=== PATIENT | male | born 1980 | race Caucasian/White ===

== ENCOUNTER 2017-07-22 16:48 | Emergency (ER) | payer OTHER ==
[2017-07-22 16:53] VITALS: PULSE 105; RESP 18; TEMP 98.9
--- NOTE | 2017-07-22 17:05 | ED ---
ENT HPI - General Chief complaint: ENT Stated complaint: ENT Time Seen by Provider: 07/22/17 16:58 Source: patient, RN notes reviewed Mode of arrival: ambulatory Limitations: no limitations - History of Present Illness Initial comments: This a 36-year-old male presents emergency Department chief complaint of bilateral ear pain, pressure. Patient states that he started with influenza- type symptoms 3 weeks ago but states that he continues with sinus congestion pressure. Patient states that he tried some [id number] Sudafed, Afrin no relief of his symptoms. Patient states that started flush years several times. Patient reports no fever no chills. Denies chest pain, shortness breath, headache or dizziness. - Related Data Previous Rx's Medication Instructions Recorded Cephalexin [Keflex] 500 mg PO Q6HR #28 cap 04/16/16 Amoxicillin 875 mg PO Q12HR #20 tablet 07/22/17 predniSONE 50 mg PO DAILY #5 tab 07/22/17 Allergies Allergy/AdvReac Type Severity Reaction Status Date / Time sulfamethoxazole Allergy Rash/Hives Verified 07/22/17 16:52 [From Bactrim] trimethoprim [From Bactrim] Allergy Rash/Hives Verified 07/22/17 16:52 Review of Systems ROS Statement: Those systems with pertinent positive or pertinent negative responses have been documented in the HPI. ROS Other: All systems not noted in ROS Statement are negative. Past Medical History Past Medical History: No Reported History History of Any Multi-Drug Resistant Organisms: MRSA Date of last positivie culture/infection: unknown Past Surgical History: Orthopedic Surgery Past Psychological History: Anxiety Smoking Status: Current every day smoker Past Alcohol Use History: Daily Past Drug Use History: Marijuana General Exam Limitations: no limitations General appearance: alert, in no apparent distress, anxious Head exam: Present: atraumatic, normocephalic, normal inspection Eye exam: Present: normal appearance, PERRL, EOMI. Absent: scleral icterus, conjunctival injection, periorbital swelling ENT exam: Present: normal oropharynx, mucous membranes moist, normal external ear exam. Absent: TM's normal bilaterally (Fluid, air fluid levels noted in the right, mild erythema noted to the left) Neck exam: Present: normal inspection, full ROM. Absent: tenderness, meningismus, lymphadenopathy Respiratory exam: Present: normal lung sounds bilaterally. Absent: respiratory distress, wheezes, rales, rhonchi, stridor Cardiovascular Exam: Present: regular rate, normal rhythm, normal heart sounds. Absent: systolic murmur, diastolic murmur, rubs, gallop, clicks Course Vital Signs 07/22/17 16:49 Temperature 98.9 F Pulse Rate 105 H Respiratory 18 Rate Blood Pressure 188/98 O2 Sat by Pulse 99 Oximetry Medical Decision Making - Medical Decision Making 36-year-old male present emergency department to complaint of bilateral ear pain , pressure. Patient has a stationary dysfunction, mild infections the left TM. Patient placed on antibiotics. He has tried some [id number]-[id number] decongestants, nasal sprays. He had the advised to continue Flonase, patient was given steroids secondary to failed conservative treatment. Disposition Clinical Impression: Eustachian tube dysfunction, Otitis media Disposition: HOME SELF-CARE Condition: Stable Instructions: Earache (ED) Additional Instructions: Please return to the Emergency Department if symptoms worsen or any other concerns. Use [id number] Flonase. Prescriptions: Amoxicillin 875 mg PO Q12HR #20 tablet predniSONE 50 mg PO DAILY #5 tab Referrals: None,Stated [Primary Care Provider] - 1-2 days Time of Disposition: 17:04
[2017-07-22 17:16] VITALS: BP 185/80
== END 2017-07-22 17:15 | disposition home or self-care (01) ==
LOC: EC 16:48
DX: H69.93 Unspecified Eustachian tube disorder, bilateral (principal); H66.92 Otitis media, unspecified, left ear; F17.200 Nicotine dependence, unspecified, uncomplicated; Z86.14 Personal history of Methicillin resistant Staphylococcus aureus infection; Z88.2 Allergy status to sulfonamides
CPT/HCPCS: 99281